=== PATIENT | female | born 1985 | race Caucasian/White ===

== ENCOUNTER 2016-11-16 16:56 | Emergency (ER) | payer OTHER ==
[~2016-11-16] VITALS: Ht 162.6 cm; Wt 78.9 kg
[2016-11-16 18:23] VITALS: BP 130/72
== END 2016-11-16 18:23 | disposition home or self-care (01) ==
LOC: ED 16:56
DX: B02.9 Zoster without complications (principal); R51 Headache; F41.9 Anxiety disorder, unspecified; Z98.890 Other specified postprocedural states

== ENCOUNTER 2017-06-25 11:26 | Emergency (ER) | payer OTHER ==
[~2017-06-25] VITALS: Ht 165.1 cm; Wt 77.1 kg
[2017-06-25 11:30] VITALS: Ht 165.1 cm; Wt 77.1 kg
[2017-06-25 13:20] LABS: UA SPECIFIC GRAVITY >=1.030 (1.005-1.035); microscopic required? YES; urine erythrocyte 2+ (NEGATIVE)
[2017-06-25 15:12] VITALS: BP 134/81
== END 2017-06-25 15:12 | disposition home or self-care (01) ==
LOC: ED 11:26
PROVIDERS: Emergency Medicine Emergency Medical Services
DX: D27.0 Benign neoplasm of right ovary (principal); Z90.49 Acquired absence of other specified parts of digestive tract; Z98.890 Other specified postprocedural states
CPT/HCPCS: 36415

== ENCOUNTER 2017-08-01 07:50 | Emergency (ER) | payer OTHER ==
[~2017-08-01] VITALS: Ht 162.6 cm; Wt 76.2 kg
[2017-08-01 07:52] VITALS: BP 123/72; Ht 162.6 cm; Wt 76.2 kg
== END 2017-08-01 08:34 | disposition home or self-care (01) ==
LOC: ED 07:50
DX: S61.411D Laceration without foreign body of right hand, subsequent encounter (principal); X58.XXXD Exposure to other specified factors, subsequent encounter